=== PATIENT | female | born 1980 | race Caucasian/White ===

== ENCOUNTER 2017-04-24 18:32 | Emergency (ER) | payer OTHER ==
[~2017-04-24] VITALS: Ht 162.6 cm; Wt 64.0 kg
[2017-04-24 18:34] VITALS: BP 144/107; PULSE 78; RESP 17; TEMP 79.8; O2SAT 99
[2017-04-24] MEDS ORDERED: NAPROXEN 500 MG TAB PO ONE (19:45)
[2017-04-24] MEDS ORDERED: NAPR500 PO (19:52)
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
[2017-04-24 20:03] VITALS: BP 138/92
== END 2017-04-24 20:05 | disposition home or self-care (01) ==
LOC: PHED 18:32
DX: M54.2 Cervicalgia (principal); M25.512 Pain in left shoulder; Z87.891 Personal history of nicotine dependence; V43.52XA Car driver injured in collision with other type car in traffic accident, initial encounter; Y93.9 Activity, unspecified; Y92.410 Unspecified street and highway as the place of occurrence of the external cause; Y99.8 Other external cause status
CPT/HCPCS: 99283

== ENCOUNTER 2017-06-08 18:59 | Emergency (ER) | payer OTHER ==
[~2017-06-08] VITALS: Ht 162.6 cm; Wt 62.0 kg
[~2017-06-08 18:59] MED LIST: NAPR500 PO
[2017-06-08 19:10] VITALS: BP 137/97; PULSE 67; RESP 18; TEMP 98.4; O2SAT 100
[2017-06-08] MEDS ORDERED: ACETAMINOPHEN 500 MG CPLT PO ONE (19:30)
[2017-06-08] MEDS ORDERED: IBUPROFEN 400 MG TAB PO ONE (19:30)
--- NOTE | 2017-06-08 20:14 | RADRPT ---
EXAM DATE/TIME: 06/08/2017 19:55 [facility] COMPARISON: No previous studies available for comparison. INDICATIONS : Pain at the tailbone. Patient fell tonight. MEDICAL HISTORY : None. SURGICAL HISTORY : None. ENCOUNTER: Initial ACUITY: 1 day PAIN SCORE: 7/10 LOCATION: Sacrum. FINDINGS: Two-view examination of the sacrum and coccyx demonstrates no evidence of fracture or malalignment. The sacral ala and foramina appear symmetric and intact. The coccyx appears unremarkable. The preve rtebral soft tissues are within normal limits. CONCLUSION: Unremarkable examination of the sacrum and coccyx. David Yu MD on June 08, 2017 at 20:12 Board Certified Radiologist. This report was verified electronically.
--- NOTE | 2017-06-08 20:26 | PD ---
HPI Chief Complaint: Fall Time Seen by Provider: 19:13 Travel History International Travel<30 days: No Contact w/Intl Traveler<30days: No Traveled to known affect area: No History of Present Illness HPI 36 year-old woman presents emergent breath or slip and fall at work. She injured her tailbone and her left elbow. She also hit her head pretty hard. She was not knocked out. She complains of only mild neck pain, and tailbone pain, and a little bit of left elbow pain. History Past Medical History Medical History: Denies Significant Hx Tetanus Vaccination: Unknown Influenza Vaccination: No LMP: 05/18/17 : 2 Social History Alcohol Use: Yes (OCCASIONALLY) Tobacco Use: No (QUIT AGE 34) Allergies-Medications (Allergen,Severity, Reaction): Coded Allergies: No Known Allergies (Unverified , 04/24/17) Reported Meds & Prescriptions Reported Meds & Active Scripts Active No Active Prescriptions or Reported Medications Review of Systems Except as stated in HPI: all other systems reviewed are Neg Physical Exam Narrative GENERAL: Well-appearing 36 old no acute distress Skull: Normocephalic. There is no palpable tenderness, contusions, or other evidence of injury. NECK: No midline tenderness. Full painless range of motion. SKIN: Warm and dry. CARDIOVASCULAR: Warm and well perfused. RESPIRATORY: Normal rate and effort. MUSCULOSKELETAL: Left elbow is unremarkable exam. She doesn't little bit tenderness on her tailbone. NEUROLOGICAL: Awake and alert. No gross deficits. Data Data Last Documented VS Vital Signs Date Time Temp Pulse Resp B/P Pulse Ox O2 Delivery O2 Flow Rate FiO2 06/08/17 19:10 98.4 67 18 137/97 100 Orders Ed Urine Pregnancytest Poc (06/08/17 19:25) Sacrum And Coccyx (06/08/17 ) Acetaminophen (Tylenol) (06/08/17 19:30) Ibuprofen (Motrin) (06/08/17 19:30) MDM Medical Decision Making Medical Screen Exam Complete: Yes Emergency Medical Condition: Yes Interpretation(s) X-ray coccyx and sacrum, negative Differential Diagnosis Tailbone injury, neck injury, head injury, elbow injury, other Narrative Course Medical decision-making new para 36-year-old with soap and fall. Looks well. No evidence of severe headache injury. Little bit neck tenderness but negative by Nexus criteria. Elbow looks fine. Tailbone x-rays negative. Recommend supportive treatment. Diagnosis Primary Impression: Neck pain Additional Impression: Coccygeal pain, acute Additional Instructions: Take Tylenol or Motrin as needed for pain. Return to the emergency department for any new or worsening symptoms. Follow-up with her primary doctor for not completely well week. Med/Other Pt SpecificInfo: No Change to Meds Scripts No Active Prescriptions or Reported Meds Disposition: 01 DISCHARGE HOME Condition: Stable Chaka Hidalgo MD Jun 08, 2017 20:26
== END 2017-06-08 20:45 | disposition home or self-care (01) ==
LOC: PHEFT 18:59
DX: M54.2 Cervicalgia (principal); R10.2 Pelvic and perineal pain; W01.0XXA Fall on same level from slipping, tripping and stumbling without subsequent striking against object, initial encounter; Y99.0 Civilian activity done for income or pay
CPT/HCPCS: 72220; 84703; 99283